=== PATIENT | female | born 1975 ===

== ENCOUNTER 2019-11-20 10:55 | Day surgery (SDC) | payer BC, OTHER ==
[~2019-11-20 10:55] MED LIST: Lactated Ringers 1,000 ML IV SCH; Lidocaine 2% 5 ML SDV ONE; Propofol 200 MG/20 ML SDV ONE
[2019-11-20] MEDS ORDERED: Propofol 200 MG/20 ML SDV ONE ×3 (10:57→12:24)
[2019-11-20] MEDS ORDERED: Ondansetron 4 MG/2 ML SDV IVPUSH ONE (11:27)
--- NOTE | 2019-11-20 11:27 | PCM.PREANE ---
Preanesthetic Assessment - Anesthesia/Transfusion/Family Hx Anesthesia History: Prior Anesthesia Without Reaction Other Type of Anesthesia Reaction Comment: Reports Nausea and vomiting post anesthesia, denies any family hx problems Family History of Anesthesia Reaction: No Transfusion History: No Prior Transfusion(s) Intubation History: Unknown - Review of Systems General: No Symptoms Pulmonary: No Symptoms Cardiovascular: No Symptoms Gastrointestinal: Abdominal Pain, Hematochezia Neurological: No Symptoms Other: Reports: None - Physical Assessment Height: 5 ft Weight: 55.338 kg ASA Class: 2 Mental Status: Alert & Oriented x3 Airway Class: Mallampati = 2 Dentition: Reports: Normal Dentition, [place](s) (x2 upper front) Thyro-Mental Finger Breadths: 3 Mouth Opening Finger Breadths: 3 ROM/Head Extension: Full Lungs: Clear to Auscultation, Normal Respiratory Effort Cardiovascular: Regular Rate, Regular Rhythm - Lab Values: Laboratory Last Values Urine HCG, Qual NEGATIVE (NEGATIVE) 11/20/19 11:06 - Allergies Allergies/Adverse Reactions: Allergies Allergy/AdvReac Type Severity Reaction Status Date / Time meperidine HCl [From Demerol] Allergy Hallucinati Verified 11/17/19 13:24 ons - Blood Blood Available: No - Anesthesia Plan Pre-Op Medication Ordered: None - Acknowledgements Anesthesia Type Planned: MAC Pt an Appropriate Candidate for the Planned Anesthesia: Yes Alternatives and Risks of Anesthesia Discussed w Pt/Guardian: Yes Pt/Guardian Understands and Agrees with Anesthesia Plan: Yes PreAnesthesia Questionnaire HEENT History: Reports: None Cardiovascular History: Reports: Other (See Below) Other Cardiovascular History: murmur in the past Respiratory History: Reports: None Gastrointestinal History: Reports: GERD, Helicobacter Pylori Other Gastrointestinal History: intermittent epigastric pain, hx gastric ulcer Genitourinary History: Reports: None Musculoskeletal History: Reports: Arthritis Neurological History: Reports: Migraines, Seizure, Other (See Below) Other Neuro History: restless leg syndrome, seizures in the past-over 20 years ago Psychiatric History: Reports: None Endocrine/Metabolic History: Reports: Hypothyroidism Hematologic History: Reports: None Immunologic History: Reports: None Oncologic (Cancer) History: Reports: None Dermatologic History: Reports: None - Past Surgical History Head Surgeries/Procedures: Reports: None HEENT Surgical History: Reports: Tonsillectomy Cardiovascular Surgical History: Reports: None Respiratory Surgical History: Reports: None GI Surgical History: Reports: Cholecystectomy, EGD (x2, last one in '14 here) Female Surgical History: Reports: Breast Implant, Tubal Ligation Endocrine Surgical History: Reports: None Neurological Surgical History: Reports: None Musculoskeletal Surgical History: Reports: None Oncologic Surgical History: Reports: None - SUBSTANCE USE Smoking Status *Q: Never Smoker - HOME MEDS Home Medications: Home Meds Levothyroxine [Synthroid] 75 mcg PO ACBRK 09/22/13 [History] Calcium Carbonate [Tums] 1 tab.chew CHEW ASDIRECTED PRN 11/17/19 [History] - CURRENT (IN HOUSE) MEDS Current Meds: Current Medications Lactated Ringer's (Ringers, Lactated) 1,000 mls @ 125 mls/hr IV ASDIRECTED SUNITA Discontinued Medications Lidocaine (Xylocaine-Mpf 2%) Confirm Administered Dose 5 ml .ROUTE .STK-MED ONE Stop: 11/20/19 10:56 Propofol (Diprivan 20 Ml) Confirm Administered Dose 200 mg .ROUTE .STK-MED ONE Stop: 11/20/19 10:55 Propofol (Diprivan 20 Ml) Confirm Administered Dose 200 mg .ROUTE .STK-MED ONE Stop: 11/20/19 10:58
[2019-11-20] MEDS ORDERED: Ondansetron 4 MG/2 ML SDV ONE (11:35)
[2019-11-20] MEDS ORDERED: Lactated Ringers 1,000 ML IV SCH (12:45)
--- NOTE | 2019-11-20 12:45 | PCM.OPNOTE ---
- General Post-Op/Procedure Note Date of Surgery/Procedure: 11/20/19 Operative Procedure(s): Colonoscopy. Esophagogastroduodenoscopy with antral and esophageal biopsies. Pre Op Diagnosis: Rectal bleeding. Persistent epigastric pain. Progressive gastroesophageal reflux disease. Post-Op Diagnosis: Mild chronic gastritis. Mild distal esophagitis. Small internal hemorrhoids. Anesthesia Technique: MAC (ASA II) Primary Surgeon: Rafael Mullins Condition: Good Free Text/Narrative:: DICTATION [id number] CPT CODE [id number]
--- NOTE | 2019-11-20 12:53 | PCM.POSTAN ---
POST ANESTHESIA ASSESSMENT - MENTAL STATUS Mental Status: Alert, Oriented - VITAL SIGNS Vital Signs: Last Vital Signs Temp 36.4 C 11/20/19 12:34 Pulse 72 11/20/19 12:49 Resp 12 11/20/19 12:49 BP 98/51 L 11/20/19 12:49 Pulse Ox 100 11/20/19 12:49 - RESPIRATORY Respiratory Status: Respiratory Rate WNL, Airway Patent, O2 Saturation Stable - CARDIOVASCULAR CV Status: Pulse Rate WNL, Blood Pressure Stable - GASTROINTESTINAL GI Status: No Symptoms - PAIN Free Text/Narrative:: 0No anesthesia problems. - POST OP HYDRATION Hydration Status: Adequate & Stable
--- NOTE | 2019-11-20 15:21 | PCM48HPAN ---
Post Anesthesia Note - EVALUATION WITHIN 48HRS OF ANESTHETIC Vital Signs in Normal Range: Yes Patient Participated in Evaluation: Yes Respiratory Function Stable: Yes Airway Patent: Yes Cardiovascular Function Stable: Yes Hydration Status Stable: Yes Pain Control Satisfactory: Yes Nausea and Vomiting Control Satisfactory: Yes Mental Status Recovered: Yes Vital Signs: Last Vital Signs Temp 36.3 C 11/20/19 13:05 Pulse 72 11/20/19 12:49 Resp 16 11/20/19 13:05 BP 99/64 11/20/19 13:05 Pulse Ox 100 11/20/19 13:05 - COMMENTS/OBSERVATIONS Free Text/Narrative:: No anesthesia problems.
--- NOTE | 2019-11-23 08:56 | OR ---
SURGEON: Rafael Mullins M.D. DATE OF PROCEDURE: 11/20/2019 OPERATION PERFORMED: Esophagogastroduodenoscopy with gastric and esophageal biopsy. PRIMARY SURGEON: Rafael Mullins MD ANESTHESIA: MAC. ASA CLASSIFICATION: II. PREOPERATIVE DIAGNOSES: 1. Epigastric pain. 2. Progressive gastroesophageal reflux disease. POSTOPERATIVE DIAGNOSES: 1. Mild chronic gastritis. 2. Distal esophagitis. DESCRIPTION OF PROCEDURE: The patient was taken to the endoscopy room, positioned on the endoscopy table in the left lateral decubitus position. Time-out was called for appropriate identification of the patient and procedure. Monitored anesthesia care was provided. A bite block was placed between the patient's teeth. The gastroscope was inserted through the bite block into the oropharynx and advanced without difficulty through the esophagus and stomach into the duodenum where examination was now carried out in a retrograde fashion. The duodenum showed no acute inflammatory changes or ulcerations. The stomach did show a mild to moderate gastritis. Antral biopsies were obtained to look for the presence of Helicobacter pylori. The gastroscope was retroflexed to visualize the proximal stomach. No significant hiatal hernia was noted and there were no inflammatory changes or ulcerations proximally. The gastroscope was then straightened and slowly withdrawn, carefully visualizing the greater and lesser curvatures. Again, no ulcerations or polyps were identified. The distal esophagus did show some mild inflammatory changes and separate biopsies of this area were obtained. No acute ulcerations were noted. The mid and proximal esophagus showed healthy appearing mucosa. The vocal cords were visualized as the scope was withdrawn and noted to move symmetrically. The gastroscope was then removed with the patient having tolerated this portion of the procedure well. Following colonoscopy, she was taken to recovery room in stable condition. KAROLYN / RON /[id number]
--- NOTE | 2019-11-23 09:08 | OR ---
SURGEON: Rafael Mullins M.D. DATE OF PROCEDURE: 11/20/2019 OPERATION PERFORMED: Colonoscopy. PRIMARY SURGEON: Rafael Mullins MD ANESTHESIA: MAC. ASA CLASSIFICATION: II. PREOPERATIVE DIAGNOSIS: Rectal bleeding. POSTOPERATIVE DIAGNOSIS: Mild internal hemorrhoids. DESCRIPTION OF PROCEDURE: With the patient having completed upper GI endoscopy, she was maintained in the left lateral decubitus position. The colonoscope was inserted into the rectum and advanced with minimal difficulty to the cecum where the colonoscope was retroflexed to visualize the ascending colon from below. The colonoscope was then straightened and slowly withdrawn. The cecum, ascending colon, hepatic flexure, transverse colon, splenic flexure, descending colon, sigmoid colon, and rectum were very well visualized. No tumors, polyps, diverticula, or angiodysplastic changes were noted anywhere in the lower gastrointestinal tract. Once the colonoscope was withdrawn to the rectum, it was retroflexed to visualize the anal orifice from above. No tumors or polyps were seen. The patient did have some chronic internal hemorrhoids. No acute bleeding was noted. No polyps were encountered distally. The colonoscope was then straightened, the rectum aspirated, and the colonoscope removed. The patient tolerated the procedure well and was taken to recovery room in stable condition. KAROLYN / RON /[id number]
== END 2019-11-20 13:51 | disposition home or self-care (01) ==
LOC: MW.SDS 10:55
PROVIDERS: ATTEND Surgery
DX: K64.8 Other hemorrhoids (principal); K29.50 Unspecified chronic gastritis without bleeding; K21.0 Gastro-esophageal reflux disease with esophagitis; E03.9 Hypothyroidism, unspecified; G25.81 Restless legs syndrome; Z88.5 Allergy status to narcotic agent; Z79.890 Hormone replacement therapy; Z79.899 Other long term (current) drug therapy
CPT/HCPCS: 43239; 45378; 81025; J2001; J2405; J2704; J7120; 00813